=== PATIENT | female | born 1960 | race Two or more races ===

== ENCOUNTER 2018-06-05 22:00 | Emergency (ER) | payer OTHER ==
[~2018-06-05] VITALS: Ht 165.1 cm; Wt 79.8 kg
[~2018-06-05 22:00] MED LIST: ANUSOL SUP1 SUPP.REC RC; ANUSOL-HC30 G2 RC; METOPROLOL SUCC50 MG; MOBIC15 MG PO; SENOKOT-S TABL1 EACH PO; SYNTHROID137 MCG
[2018-06-05] MEDS ORDERED: COZAAR25 MG (22:19)
[2018-06-06] MEDS ORDERED: MECLIZINE HCL25 MG PO (01:15)
[2018-06-06] MEDS ORDERED: KETO10TA2 PO (01:15)
[2018-06-06] MEDS ORDERED: ORPHENADRINE C100 MG PO (01:15)
== END 2018-06-06 01:28 | disposition home or self-care (01) ==
LOC: ER 22:00
DX: S93.492A Sprain of other ligament of left ankle, initial encounter (principal); X50.9XXA Other and unspecified overexertion or strenuous movements or postures, initial encounter; Y93.89 Activity, other specified; Y92.89 Other specified places as the place of occurrence of the external cause; Y99.8 Other external cause status; H81.13 Benign paroxysmal vertigo, bilateral; H93.11 Tinnitus, right ear